=== PATIENT | male | born 1990 | race Caucasian/White ===

== ENCOUNTER 2017-08-31 22:47 | Emergency (ER) | payer OTHER ==
[~2017-08-31] VITALS: Ht 170.2 cm; Wt 87.1 kg
[2017-08-31 23:00] VITALS: Ht 170.2 cm; Wt 87.1 kg
[2017-08-31 23:30] VITALS: BP 131/76
== END 2017-08-31 23:31 | disposition home or self-care (01) ==
LOC: ED 22:47
DX: T23.222A Burn of second degree of single left finger (nail) except thumb, initial encounter (principal); X08.8XXA Exposure to other specified smoke, fire and flames, initial encounter; Y93.89 Activity, other specified; Y92.89 Other specified places as the place of occurrence of the external cause; Y99.8 Other external cause status

== ENCOUNTER 2018-05-03 21:37 | Emergency (ER) | payer OTHER ==
[~2018-05-03] VITALS: Ht 172.7 cm; Wt 91.6 kg
[2018-05-03 21:46] VITALS: Ht 172.7 cm; Wt 91.6 kg
[2018-05-03 23:29] VITALS: BP 128/84
== END 2018-05-03 23:29 | disposition home or self-care (01) ==
LOC: ED 21:37
DX: M25.531 Pain in right wrist (principal); X50.0XXA Overexertion from strenuous movement or load, initial encounter; Y93.89 Activity, other specified; Y92.89 Other specified places as the place of occurrence of the external cause; Y99.8 Other external cause status

== ENCOUNTER 2020-07-31 14:03 | Emergency (ER) | payer OTHER | END 2020-07-31 17:17 | LOC: ED 14:03 | DX: Z02.89 Encounter for other administrative examinations (principal) ==

== ENCOUNTER 2020-07-31 14:03 | Emergency (ER) | payer OTHER ==
[~2020-07-31] VITALS: Ht 172.7 cm; Wt 88.5 kg
[2020-07-31 14:07] VITALS: BP 141/94; Ht 172.7 cm; Wt 88.5 kg
== END 2020-07-31 17:17 ==
LOC: ED 14:03
DX: M79.604 Pain in right leg (principal)